=== PATIENT | female | born 2000 | race Caucasian/White ===

== ENCOUNTER 2020-06-21 10:20 | Observation (INO) | payer MEDICAID ==
[~2020-06-21] VITALS: Ht 154.9 cm; Wt 86.2 kg
[2020-06-21] MEDS ORDERED: RINGERS SOLUTION,LACTATED 1,000 ML IV ONE (11:15)
== END 2020-06-21 13:45 | disposition home or self-care (01) ==
LOC: 4S 10:20
PROVIDERS: ADMIT Obstetrics & Gynecology; ATTEND Obstetrics & Gynecology
DX: O36.8330 Maternal care for abnormalities of the fetal heart rate or rhythm, third trimester, not applicable or unspecified (principal); Z3A.38 38 weeks gestation of pregnancy; Z98.891 History of uterine scar from previous surgery
CPT/HCPCS: 59025; 76811; 96360; G0378; 96365

== ENCOUNTER 2020-06-25 08:55 | Observation (INO) | payer MEDICAID | END 2020-06-25 09:15 | disposition home or self-care (01) | LOC: 4S 08:55 | PROVIDERS: ADMIT Obstetrics & Gynecology; ATTEND Obstetrics & Gynecology | DX: Z03.818 Encounter for observation for suspected exposure to other biological agents ruled out (principal); O26.893 Other specified pregnancy related conditions, third trimester; Z3A.39 39 weeks gestation of pregnancy | CPT/HCPCS: 87635; G0378 ==